=== PATIENT | male | born 1995 | race Caucasian/White ===

== ENCOUNTER 2020-07-07 07:12 | Emergency (ER) | payer MEDICAID ==
[~2020-07-07] VITALS: Ht 193 cm; Wt 90.0 kg
[~2020-07-07 07:12] MED LIST: QUET300T5
--- NOTE | 2020-07-07 07:26 | NUR ---
LATE ENTRY FOR 725: pt maik, report taken from [facility]. pt c/o n/v, headache, tremors, left upper abd pain x 1 week, cough x2 weeks. pt has increased daily etoh intake over last week (baseline is 6 beers and several shots per day), stopped depakote "cold turkey" one week ago, also states this week he has been alternating between etoh binges and "cutting myself off". pt states regarding depakote discontinuation, "I didn't have no reason". denies SI/HI, denies recent travel, denies sick contacts all monitors in place, piv placed scow captain, pt medicated scow captain w 2mg versed. pt remains anxious, mildly tremulous, states last drink was 0400 this am. call light in reach, warm blanket provided. talha guallpa at bedside.
[2020-07-07] MEDS ORDERED: LORazepam 2 MG/ML, 1ML IVPush ONE (07:30)
[2020-07-07] MEDS ORDERED: ONDANSETRON 2MG/ML, 2ML IVPush ONE (07:30)
[2020-07-07] MEDS ORDERED: KETOROLAC 30 MG/1 ML IVPush ONE (07:30)
[2020-07-07] MEDS ORDERED: SODIUM CHLORIDE 0.9% 1,000ML IVBOLUS ONE (07:30)
[2020-07-07 07:52] LABS: BASOPHILS % (AUTO) 1 % (0-1); EOSINOPHILS % (AUTO) 1 % (1-7); LYMPHOCYTES % (AUTO) 37 % (22-44); MEAN CORPUSCULAR HEMOGLOBIN 30.7 pg (27.5-34.5); MEAN CORPUSCULAR HGB CONC 34.2 g/dL (33.2-36.2); MEAN PLATELET VOLUME 7.7 fL (7.4-10.4); MONOCYTES % (AUTO) 7 % (2-9); NEUTROPHILS % (AUTO) 53 % (42-75); PLATELET COUNT 241 x10^3/uL (130-400); RED BLOOD COUNT 5.28 x10^6/uL (4.38-5.82); RED CELL DISTRIBUTION WIDTH 13.5 % (9.4-14.8)
[2020-07-07 07:59] LABS: MD NO
[2020-07-07 08:01] LABS: ALBUMIN 4.2 g/dL (3.4-5.0); ANION GAP 5 mmol/L (5-15); CALCIUM 8.8 mg/dL (8.5-10.1); CHLORIDE 105 mmol/L (98-107)
[2020-07-07 08:05] LABS: ALANINE AMINOTRANSFERASE 23 U/L (12-78); ALKALINE PHOSPHATASE 55 U/L (45-117); BILIRUBIN,TOTAL 0.4 mg/dL (0.2-1.0); CREATININE 1.06 mg/dL (0.7-1.3); TOTAL PROTEIN 7.9 g/dL (6.4-8.2)
[2020-07-07] MEDS ORDERED: LORazepam 2 MG/ML, 1ML ONE (08:12)
[2020-07-07] MEDS ORDERED: ONDANSETRON 2MG/ML, 2ML ONE (08:12)
[2020-07-07] MEDS ORDERED: KETOROLAC 30 MG/1 ML ONE (08:12)
--- NOTE | 2020-07-07 08:30 | NUR ---
pt medicated per [facility] w ativan, toradol and zofran, pain and anxiety improved, ciwa score 0. pt a&o, resps even and unlabored, nadn. nsr on desk monitor with no ectopy. gf at bedside, awaiting provider reassessment and dispo.
[2020-07-07] MEDS ORDERED: PANTOPRAZOLE 40 MG IV ONE (09:00)
[2020-07-07] MEDS ORDERED: PANTOPRAZOLE 40 MG IV IVPush ONE (09:00)
[2020-07-07 09:08] VITALS: BP 132/76
--- NOTE | 2020-07-07 09:15 | NUR ---
pt given results and poc by FALGUNI Clements and MACRINA Whaley, verbalizes understanding. pt agreeable to discharge with OP referral to detox facilities. pt a&o, resps even and unlabored, mayank.
== END 2020-07-07 09:27 | disposition home or self-care (01) ==
LOC: ED 08:42
DX: K29.20 Alcoholic gastritis without bleeding (principal); F10.139 Alcohol abuse with withdrawal, unspecified; R51.9 Headache, unspecified; R11.2 Nausea with vomiting, unspecified; R10.13 Epigastric pain; F17.210 Nicotine dependence, cigarettes, uncomplicated; Y90.0 Blood alcohol level of less than 20 mg/100 ml
CPT/HCPCS: 36415; 76700; 80053; 80320; 83690; 85025; 96361; 96374; 96375; 99284; C9113; J1885; J2060; J2405; J7030; G0480

== ENCOUNTER 2020-08-05 01:23 | Emergency (ER) | payer MEDICAID ==
[~2020-08-05] VITALS: Ht 193 cm; Wt 87.0 kg
[2020-08-05 01:25] VITALS: BP 124/80
--- NOTE | 2020-08-05 02:38 | NUR ---
ROADMASTER: NOT IN LOBBY WHEN CALLED FOR ROOM
--- NOTE | 2020-08-05 02:58 | NUR ---
PT NOT IN LOBBY WHEN CALLED
--- NOTE | 2020-08-05 03:10 | NUR ---
PT NOT IN LOBBY WHEN CALLED
== END 2020-08-05 03:11 | disposition left against medical advice (07) ==
LOC: ED 01:30
DX: M25.572 Pain in left ankle and joints of left foot (principal); R10.9 Unspecified abdominal pain; R94.31 Abnormal electrocardiogram [ECG] [EKG]; Z53.21 Procedure and treatment not carried out due to patient leaving prior to being seen by health care provider
CPT/HCPCS: 93005